=== PATIENT | female | born 2000 | race Caucasian/White ===

== ENCOUNTER 2023-07-30 17:28 | Emergency (ER) | payer OTHER, SELFPAY ==
[2023-07-30 17:28] VITALS: BMI 18.7
[2023-07-30 17:46] VITALS: BP 118/83
[2023-07-30 18:04] LABS: % Basophils 0.7 % (0-2); % Eosinophils 1.6 % (0-6); % Immature Granulocytes 0.4 % (0-0.5); % Lymphocytes 28.6 % (20.5-51.1); % Monocytes 4.9 % (1.7-9.3); % Neutrophils 63.8 % (42.2-75.2); Absolute Basophils 0.1 10^3/uL (0-0.2); Absolute Eosinophils 0.2 10^3/uL (0-0.7); Absolute Monocytes 0.5 10^3/uL (0.1-0.6); Absolute Neutrophils 6.6 10^3/uL (1.4-6.5); Hematocrit 38.4 % (37.0-47.0); Mean Corp Hgb Conc. 33.9 g/dL (33.0-37.0); Mean Corpuscular Hgb 27.2 pg (27.0-31.0); Mean Corpuscular Volume 80.3 fL (81.0-99.0); Mean Platelet Volume 9.1 fL (7.4-10.4); Nucleated Red Blood Cells % 0 %; Platelet Count 507 10^3/uL (130-400); Red Blood Cell Count 4.78 10^6/uL (4.20-5.40); Red Cell Dist. Width 13.1 % (11.5-14.5); White Blood Cell Count 10.4 10^3/uL (4.8-10.8)
[2023-07-30 18:18] LABS: HCG, Serum Qualitative Screen Negative
[2023-07-30 18:20] LABS: ALT (SGPT) 19 U/L (0-35); AST (SGOT) 12 U/L (14-36); Albumin 4.5 g/dl (3.5-5.0); Alkaline Phosphatase 45 U/L (38-126); Blood Urea Nitrogen 17 mg/dl (7-17); Calcium 9.7 mg/dl (8.4-10.2); Carbon Dioxide 24 mmol/L (22-30); Chloride 106 mmol/L (98-107); Glucose 101 mg/dl (70-99); Potassium 4.4 mmol/L (3.5-5.1); Sodium 136 mmol/L (135-145); Total Bilirubin 0.5 mg/dl (0.2-1.3); Total Protein 7.4 g/dl (6.3-8.2); eGFR > 60.00
[2023-07-30 18:31] LABS: Troponin I < 0.012 ng/ml
[2023-07-30 19:51] VITALS: BP 119/81
[2023-07-30 20:00] VITALS: BP 108/79
[2023-07-30 22:09] VITALS: BP 118/71
--- NOTE | 2023-07-31 02:34 | ED.GENMED ---
History of Present Illness
General
Chief Complaint: Chest Problem
Source: patient and family (mother at bedside providing some of hx)
Exam Limitations: none
Time Seen by Provider: 07/30/23 19:32
Nursing documentation reviewed up to this point in time: agreed with
Travel History
Have you had any contact with someone who has COVID-19?: No
Do you have any symptoms of coronavirus? Fever > 100 degrees, chills, cough, shortness of breath, sore throat, loss of taste or smell, muscle aches, or headache?: No
History of Present Illness
History of Present Illness:
23-year-old female with history of celiac disease, anxiety presents stating she has had left upper chest pain for the past 4 days and reporting to her left clavicle states 'this lump here is bigger than the one on the opposite side.' She has had
intermittent lightheadedness, metallic taste in her mouth past 2 days, intermittent pain in her left upper arm and the medial aspect of her distal right thigh. 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
chills. Denies trouble breathing, denies abdominal pain, n/v/d/c.
Past History
Past History
ED Past Medical History: None
ED Past Surgical History: None
Social History
Tobacco: Non-smoker
Alcohol: None
Drug: None
Review of Systems
Review of Systems
Allergies reviewed?: Yes
All Other Systems: ROS reviewed and negative except as documented in HPI and ROS
Constitutional: Denies fever
EENT: Reports other (Metallic taste in mouth); Denies sore throat
Respiratory: Denies trouble breathing
Cardiac: Reports chest pain (Left upper chest)
ABD/GI: Denies abdominal pain, nausea, vomiting or diarrhea
: Denies dysuria or difficulty voiding
Musculoskeletal: Reports muscle pain (Intermittently left upper arm and right medial lower thigh); Denies neck pain or back pain
Skin: Reports no symptoms
Neurological: Reports other (Fleeting episodes of lightheadedness)
Psychiatric: Reports other (Admits to being under stress from grad school)
Phy Exam
Physical Exam
Physical Exam:
GENERAL: No acute distress. A&Ox3.
CONSTITUTIONAL: Afebrile.
EYES: PERRL, conjunctivae normal
Neck: Supple
ENMT: moist mucus membranes, Pharynx nl, tongue normal, good dentition
RESPIRATORY: Regular respirations, nonlabored, lungs clear.
CARDIOVASCULAR: Regular rate and rhythm, no murmurs, no rubs.
GI: Soft, nontender, normal BS
MUSCULOSKELETAL: Mild tenderness to palpation left upper chest wall. Moves with ease. Well perfused.
SKIN: Warm, dry, pink
PSYCH: Normal mood and affect. Well kept, interactive and appropriate
NEUROLOGIC: Awake, alert and oriented. No focal neurological deficits
Course
Orders/Labs/Results
Orders:
Orders
07/30/23 17:29
EKG [Electrocardiogram (*1)] Urgent
Reason for Study: Chest Pain
EKG- Treatment ONCE
07/30/23 17:51
Test Result ONCE
07/30/23 17:55
Complete Blood Count/With Diff Urgent
Comprehensive Metabolic Panel Urgent
HCG, Serum Qualitative Screen Urgent
Troponin I Urgent
07/30/23 19:52
CR Chest - 2 Views Urgent
Comment:
Reason For Exam: L upper chest pain
Abnormal Lab Results
07/30/23
17:55
MCV 80.3 L fL
(81.0-99.0)
Plt Count 507 H 10^3/uL
(130-400)
Absolute Neuts (auto) 6.6 H 10^3/uL
(1.4-6.5)
Glucose 101 H mg/dl
(70-99)
AST 12 L U/L
(14-36)
07/30/23 17:55
07/30/23 17:55
Vital Signs
Initial and Last Documented VS:
Initial Vital Signs
Temp Pulse Resp BP Pulse Ox
98.9 F 114 20 118/83 98
07/30/23 17:46 07/30/23 17:46 07/30/23 17:46 07/30/23 17:46 07/30/23 17:46
Last Documented Vital Signs
Temp Pulse Resp BP Pulse Ox
98.9 F 114 20 118/71 99
07/30/23 17:46 07/30/23 17:46 07/30/23 17:46 07/30/23 22:09 07/30/23 22:09
MDM/Problems Addressed
Differential Diagnosis Includes:
Chest wall pain, costochondritis, viral illness, stress
MDM/Problems Addressed:
23-year-old female with history of celiac disease, anxiety presents stating she has had left upper chest pain for the past 4 days and reporting to her left clavicle states 'this lump here is bigger than the one on the opposite side.' She has had
intermittent lightheadedness, metallic taste in her mouth past 2 days, intermittent pain in her left upper arm and the medial aspect of her distal right thigh. 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
chills. Denies trouble breathing, denies abdominal pain, n/v/d/c.
Afebrile
07/30/2023 1900 AM
CBC normal
CMP normal
hCG negative
EKG NSR
Troponin normal
Chest x-ray NAD
Heart rate on discharge 88 by this examiner
Pt reassured no worrisome finding
*Critical Care Note
Total Time (30-74mins, 75-104mins- exclusive of procedures): Not Applicable
ED Attending Note
-
Portions of this chart may have been created with voice recognition software.� Occasional wrong word or��sound alike� substitutions may have occurred due to the inherent limitations of voice recognition software.
Discharge Plan
Departure
Patient Disposition: Home (Routine Discharge)
Date of Disposition: 07/30/23
Time of Disposition: 21:40
Patient with high blood pressure during this ER visit?: No
Condition: Good
Discharge Problem:
Body aches, Atypical chest pain, Metallic taste
Instructions: Chest Pain That Is Not Caused by the Heart (DC), Stress
Prescriptions:
No Action
polyethylene glycol 3350 255 GM powder
17 gm PO DAILY
ondansetron 4 MG tablet,disintegrating
4 mg PO BIDPRN PRN (Reason: nausea) Qty: 14 0RF
Referrals:
Morales Longo, DO [Family Provider] - As needed
Activity Restrictions/Additional Instructions:
As we discussed, I see nothing worrisome in your workup here today.
Try Ibuprofen or Tylenol for the muscle aches.
The slightly larger bone in the left chest is just your anatomy, nothing worrisome
If the metallic taste remains after one week, see your doctor or dentist for recheck.
Interventions
Interventions:
*ED COVID-19 Vaccine History Last Done: 07/30/23 17:46
*Nursing Disposition Last Done: 07/30/23 22:15
ED- Cardiac Assessment Last Done: 07/30/23 19:59
ED- Pulmonary Assessment Last Done: 07/30/23 19:59
Discharge Date and Time
Discharge Date/Time: 07/30/23 22:15
== END 2023-07-30 22:15 | disposition home or self-care (01) ==
LOC: EMR 17:28
PROVIDERS: Emergency Medicine; EMERGENCY PHYSICIAN Emergency Medicine; FAMILY PHYSICIAN Internal Medicine
DX: R07.89 Other chest pain (principal); K90.0 Celiac disease; M79.10 Myalgia, unspecified site; R43.8 Other disturbances of smell and taste
CPT/HCPCS: 99283; 71046; 80053; 84484; 84703; 85025; 93005